=== PATIENT | male | born 1995 | race Hispanic/Latino ===

== ENCOUNTER 2020-05-23 11:30 | Emergency (ER) | payer SELFPAY ==
[~2020-05-23] VITALS: Ht 193 cm; Wt 135.2 kg
== END 2020-05-23 15:52 | disposition home or self-care (01) ==
LOC: ER 13:49
DX: F41.9 Anxiety disorder, unspecified (principal); H00.011 Hordeolum externum right upper eyelid
CPT/HCPCS: 99283

== ENCOUNTER 2020-06-04 20:00 | Emergency (ER) | payer SELFPAY ==
[~2020-06-04] VITALS: Ht 193 cm; Wt 135.2 kg
== END 2020-06-04 21:41 | disposition home or self-care (01) ==
LOC: ER 20:08
DX: R51.9 Headache, unspecified (principal)
CPT/HCPCS: 70450; 99283